=== PATIENT | male | born 1995 | race Hispanic/Latino ===

== ENCOUNTER 2018-10-06 16:39 | Emergency (ER) | payer SELFPAY ==
--- NOTE | 2018-10-06 17:39 | ER ---
Nurse's Notes [facility] Name: Tomasz Hernandez Jr Age: 22 yrs Sex: Male : 1995 Arrival Date: 10/06/2018 Time: 16:42 Bed 15 Private MD: Diagnosis: Fall on same level from slipping, tripping and stumbling;Contusion of right lower leg Presentation: 10/06 16:50 Presenting complaint: Patient states: Fell from standing position, pt reports swelling sg and pain to the right buchanan and calf, abrasions noted that are clean and dry, pt c/o pain, reports injury happened on Monday night. Transition of care: patient was not received from another setting of care. Onset of symptoms was October 06, 2018. Risk Assessment: Do you want to hurt yourself or someone else? Patient reports no desire to harm self or others. Initial Sepsis Screen: Does the patient meet any 2 criteria? No. Patient's initial sepsis screen is negative. Does the patient have a suspected source of infection? No. Patient's initial sepsis screen is negative. Care prior to arrival: None. 16:50 Method Of Arrival: Ambulatory sg 16:50 Acuity: GINGER 4 sg Historical: - Allergies: 17:00 No Known Allergies; rb1 - Home Meds: 17:00 None [Active]; rb1 - PMHx: 17:00 None; rb1 - PSHx: 17:00 Tonsillectomy; rb1 - Immunization history:: Adult Immunizations up to date. - Social history:: Smoking status: Patient/guardian denies using tobacco. - Ebola Screening: : Patient negative for fever greater than or equal to 101.5 degrees Fahrenheit, and additional compatible Ebola Virus Disease symptoms. Screenin:00 Abuse screen: Denies threats or abuse. Nutritional screening: No deficits noted. rb1 Tuberculosis screening: No symptoms or risk factors identified. Fall Risk Fall in past 12 months (25 points). No secondary diagnosis (0 pts). No IV (0 pts). Ambulatory Aid- None/Bed Rest/Nurse Assist (0 pts). Gait- Normal/Bed Rest/Wheelchair (0 pts) Mental Status- Oriented to own ability (0 pts). Total Power Fall Scale indicates Low Risk Score (25-44 pts). Fall prevention measures have been instituted. Side Rails Up X 2 Placed close to Nursing Station 1:1 attendant Assigned to Pt. Frequent Obs/Assesments occuring. Assessment: 17:00 General: Appears in no apparent distress. comfortable, Behavior is calm, cooperative. rb1 Pain: Complains of pain in right leg Pain currently is 3 out of 10 on a pain scale. Pain began Monday. Neuro: Level of Consciousness is awake, alert, obeys commands, Oriented to person, place, time, situation. Cardiovascular: Capillary refill < 3 seconds is brisk in bilateral toes. Cardiovascular: Pulses are palpable in right posterior tibial artery and right dorsalis pedis artery. Respiratory: Airway is patent Respiratory effort is even, unlabored, Respiratory pattern is regular, symmetrical. GI: No signs and/or symptoms were reported involving the gastrointestinal system. : No signs and/or symptoms were reported regarding the genitourinary system. Derm: Bruising that is dark purple, on right leg. Vital Signs: 16:51 BP 132 / 72; Pulse 80; Resp 17; Temp 98.7; Pulse Ox 100% on R/A; Weight 122.47 kg; sg Height 5 ft. 10 in. (177.80 cm); Pain 5/10; 17:30 BP 128 / 73; Pulse 77; Resp 16; Pulse Ox 99% on R/A; rb1 16:51 Body Mass Index 38.74 (122.47 kg, 177.80 cm) sg ED Course: 16:42 Patient arrived in ED. as 16:48 Arm band placed on. sg 16:51 Triage completed. sg 17:00 Patient has correct armband on for positive identification. Bed in low position. Call rb1 light in reach. Side rails up X 1. Pulse ox on. NIBP on. 17:02 Carisa Dias FNP-C is PHCP. kb 17:02 Papito Mcclain MD is Attending Physician. kb 17:16 Jennifer Narayanan, KEENAN is Primary Nurse. rb1 17:32 X-ray completed. Portable x-ray completed in exam room. Patient tolerated procedure la2 well. 17:33 Tib Fib Right XRAY In Process Unspecified. EDMS 17:48 No provider procedures requiring assistance completed. Patient did not have IV access rb1 during this emergency room visit. Administered Medications: No medications were administered Outcome: 17:38 Discharge ordered by . kb 17:48 Patient left the ED. hb 17:48 Discharged to home ambulatory. rb1 17:48 Condition: stable 17:48 Discharge instructions given to patient, Instructed on discharge instructions, follow up and referral plans. Demonstrated understanding of instructions, follow-up care. Signatures: Dispatcher [employer] EDCarisa Banda, CONCRETE SPREADER-C CONCRETE SPREADER-Ckb Oral Zayas RN RN sg Martinez, Amelia as Barber, Rebecca, RN RN [facility] Yoselin Chou RN RN Scarlett Patel
--- NOTE | 2018-10-06 17:39 | EDPHYS ---
Physician Documentation [facility] Name: Tomasz Hernandez Jr Age: 22 yrs Sex: Male : 1995 Arrival Date: 10/06/2018 Time: 16:42 Bed 15 Private MD: ED Physician Papito Mcclain HPI: 10/06 17:06 This 22 yrs old Male presents to ER via Ambulatory with complaints of Leg kb Swelling, Leg Pain. 17:06 The patient presents with an abrasion, an injury, swelling, tenderness. The complaints kb affect the right buchanan. Context: The problem was sustained at work, resulted from the patient falling, while standing, the patient can fully bear weight, the patient is able to ambulate, Problem is a result from a previous injury: No. Onset: The symptoms/episode began/occurred 5 day(s) ago. Modifying factors: The symptoms are alleviated by nothing. the symptoms are aggravated by nothing. Associated signs and symptoms: Pertinent positives: swelling, Pertinent negatives calf tenderness, fever, nausea, numbness, rash, tingling, vomiting, warmth, weakness. Treatment prior to arrival includes: no previous treatment. Severity of symptoms: At their worst the symptoms were moderate, in the emergency department the symptoms are unchanged. The patient has not experienced similar symptoms in the past. The patient has not recently seen a physician. Historical: - Allergies: 17:00 No Known Allergies; rb1 - Home Meds: 17:00 None [Active]; rb1 - PMHx: 17:00 None; rb1 - PSHx: 17:00 Tonsillectomy; rb1 - Immunization history:: Adult Immunizations up to date. - Social history:: Smoking status: Patient/guardian denies using tobacco. - Ebola Screening: : Patient negative for fever greater than or equal to 101.5 degrees Fahrenheit, and additional compatible Ebola Virus Disease symptoms. ROS: 17:05 Constitutional: Negative for fever, chills, and weight loss, Neck: Negative for injury, kb pain, and swelling, Cardiovascular: Negative for chest pain, palpitations, and edema, Respiratory: Negative for shortness of breath, cough, wheezing, and pleuritic chest pain, Abdomen/GI: Negative for abdominal pain, nausea, vomiting, diarrhea, and constipation, Neuro: Negative for headache, weakness, numbness, tingling, and seizure. 17:05 MS/extremity: Positive for injury or acute deformity, abrasion, ecchymosis, pain, swelling, tenderness, of the right buchanan. Exam: 17:05 Constitutional: This is a well developed, well nourished patient who is awake, alert, kb and in no acute distress. Head/Face: Normocephalic, atraumatic. Chest/axilla: Normal chest wall appearance and motion. Nontender with no deformity. No lesions are appreciated. Cardiovascular: Regular rate and rhythm with a normal S1 and S2. No gallops, murmurs, or rubs. Normal PMI, no JVD. No pulse deficits. Respiratory: Lungs have equal breath sounds bilaterally, clear to auscultation and percussion. No rales, rhonchi or wheezes noted. No increased work of breathing, no retractions or nasal flaring. Abdomen/GI: Soft, non-tender, with normal bowel sounds. No distension or tympany. No guarding or rebound. No evidence of tenderness throughout. Neuro: Awake and alert, GCS 15, oriented to person, place, time, and situation. Cranial nerves II-XII grossly intact. Motor strength 5/5 in all extremities. Sensory grossly intact. Cerebellar exam normal. Normal gait. 17:05 Musculoskeletal/extremity: Extremities: grossly normal except: noted in the right buchanan: ecchymosis, pain, swelling, tenderness, ROM: intact in all extremities, Circulation is intact in all extremities. Sensation intact. Weight bearing: able to fully bear weight. 17:05 Skin: Appearance: normal except for affected area, ecchymosis, noted on the, right buchanan, that are moderate, of the right buchanan, injury, abrasion(s), moderate sized abrasion noted. Vital Signs: 16:51 BP 132 / 72; Pulse 80; Resp 17; Temp 98.7; Pulse Ox 100% on R/A; Weight 122.47 kg; sg Height 5 ft. 10 in. (177.80 cm); Pain 5/10; 17:30 BP 128 / 73; Pulse 77; Resp 16; Pulse Ox 99% on R/A; rb1 16:51 Body Mass Index 38.74 (122.47 kg, 177.80 cm) sg MDM: 17:02 Patient medically screened. kb 17:05 Data reviewed: vital signs, nurses notes. Data interpreted: Pulse oximetry: on room air kb is 100 %. Interpretation: normal. 17:38 Counseling: I had a detailed discussion with the patient and/or guardian regarding: the kb historical points, exam findings, and any diagnostic results supporting the discharge/admit diagnosis, radiology results, the need for outpatient follow up, a family practitioner, to return to the emergency department if symptoms worsen or persist or if there are any questions or concerns that arise at home. 10/06 17:04 Order name: Tib Fib Right XRAY kb Administered Medications: No medications were administered Disposition: 10/07 07:03 Co-signature as Attending Physician, Papito Mcclain MD. rn Disposition: 10/06/18 17:38 Discharged to Home. Impression: Fall on same level from slipping, tripping and stumbling, Contusion of right lower leg. - Condition is Stable. - Discharge Instructions: Contusion, [id number]. - Medication Reconciliation Form, Thank You Letter, Antibiotic Education, Prescription Opioid Use form. - Follow up: Emergency Department; When: As needed; Reason: Worsening of condition. Follow up: Private Physician; When: 2 - 3 days; Reason: Recheck today's complaints, Continuance of care, Re-evaluation by your physician. Signatures: Dispatcher [employer] EDMS Carisa Dias, EGG PROCESSING SUPERVISOR-C EGG PROCESSING SUPERVISOR-Ckb Papito Mcclain MD MD rn Barber, Rebecca, RN RN rb1 Baxter, Heather, RN RN Corrections: (The following items were deleted from the chart) 10/06 17:48 17:38 10/06/2018 17:38 Discharged to Home. Impression: Fall on same level from hb slipping, tripping and stumbling; Contusion of right lower leg. Condition is Stable. Forms are Medication Reconciliation Form, Thank You Letter, Antibiotic Education, Prescription Opioid Use. Follow up: Emergency Department; When: As needed; Reason: Worsening of condition. Follow up: Private Physician; When: 2 - 3 days; Reason: Recheck today's complaints, Continuance of care, Re-evaluation by your physician. kb
--- NOTE | 2018-10-06 18:02 | RAD REPORT ---
EXAM DESCRIPTION: RAD - Tib Fib Right - 10/06/2018 5:36 pm CLINICAL HISTORY: Fall, leg pain COMPARISON: None. FINDINGS: No fracture is identified. There is no dislocation or periosteal reaction noted. No acute or suspicious bony finding. Minimal plantar spur present. No foreign body in the soft tissues. Subcutaneous fatty tissues are edematous in appearance. Baseline for the patient is unknown. IMPRESSION: Subcutaneous fatty soft tissues appear edematous. No air or foreign body. No acute bone or joint finding.
[2018-10-06] MEDS ORDERED: NA CHLORIDE 0.9% 1,000 ML ONE (18:23)
== END 2018-10-06 17:48 | disposition home or self-care (01) ==
LOC: ER 16:39
DX: S80.11XA Contusion of right lower leg, initial encounter (principal); W01.0XXA Fall on same level from slipping, tripping and stumbling without subsequent striking against object, initial encounter; Y93.9 Activity, unspecified; Y92.89 Other specified places as the place of occurrence of the external cause; Y99.8 Other external cause status
CPT/HCPCS: 99283; J7030